=== PATIENT | male | born 1955 | race Caucasian/White ===

== ENCOUNTER 2018-12-29 07:40 | Observation (INO) | payer OTHER ==
[~2018-12-29] VITALS: Ht 165.1 cm; Wt 68.0 kg
[2018-12-29] MEDS ORDERED: NORVASC5 MG PO (07:56)
[2018-12-29] MEDS ORDERED: ASPIR 8181 MG PO (07:56)
[2018-12-29] MEDS ORDERED: CYMBALTA30 MG PO (07:57)
[2018-12-29] MEDS ORDERED: PEPCID AC10 MG PO (07:58)
[2018-12-29] MEDS ORDERED: MELATONIN3 MG PO (07:58)
[2018-12-29] MEDS ORDERED: PROSCAR 5MG TABL5 MG PO (07:58)
[2018-12-29 08:23] LABS: HEMATOCRIT 42.9 % (42.0-52.0); HEMOGLOBIN 14.3 gm/dL (14.0-18.0); MCH 27.9 pg (26.0-34.0); MCHC 33.2 g/dL (28.0-37.0); RBC 5.11 mil/uL (4.50-6.00); RDW 14.4 % (10.5-14.5); WBC 9.2 thou/uL (4.0-11.0)
[2018-12-29 08:31] LABS: CALCIUM 9.7 mg/dL (8.5-10.1); CREATININE 0.8 mg/dL (0.7-1.3); POTASSIUM 3.9 mmol/L (3.5-5.1)
[2018-12-29 08:44] VITALS: BP 113/80
[2018-12-29 09:23] VITALS: BP 113/80
[2018-12-29 16:00] VITALS: BP 186/116; BP 189/119
[2018-12-29 17:00] VITALS: BP 144/93
--- NOTE | 2018-12-29 19:36 | NUR ---
ASSUMED PATIENT CARE FROM IR. STENTS PLACED TODAY. GROIN SITES APPROPRIATE. INCONTINENT OF BOWEL AND BLADDER. URINE BLOOD TINGED. DR. PRASAD NOTIFIED, NO NEW ORDERS GIVEN. MORPHINE GIVEN FOR PAIN. BEDREST UNTIL 1999. PROGRESSING TOWARDS GOALS. OBS PATIENT. WILL MOST LIKELY DC BACK TO [facility] IN [place] TOMORROW.
[2018-12-29 19:40] VITALS: BP 157/90
[2018-12-30 04:23] VITALS: BP 148/83
--- NOTE | 2018-12-30 05:23 | NUR ---
AT 2100 ASSESSMENT PT STATED HE WAS IN PAIN. PT STATES HIS PAIN IS CHRONIC, GAVE 2MG MORPHINE AND 650 ACETA. AFTER 1999 AND TIME ENDED FOR BEING SUPINE PT WANTED TO BE MOVED TO THE CHAIR, IT WAS WHERE HE STATED UNTIL 2400. POC BEING FOLLOWED WITH ONE TIME IVF. CATH SITES CDI, AND NO BRUIE IS HEARD. HOURLY ROUNDING. PT IS ABLE TO EXPRESS HIS NEEDS AND IS ABLE TO USE THE CALL LIGHT.
[2018-12-30 06:23] LABS: HEMOGLOBIN 12.8 gm/dL (14.0-18.0); MCH 27.6 pg (26.0-34.0); MCHC 32.7 g/dL (28.0-37.0); MCV 84.4 fL (80.0-100.0); RBC 4.63 mil/uL (4.50-6.00); RDW 14.6 % (10.5-14.5); WBC 10.8 thou/uL (4.0-11.0)
[2018-12-30 06:30] LABS: CALCIUM 9.2 mg/dL (8.5-10.1); CREATININE 0.7 mg/dL (0.7-1.3); POTASSIUM 3.5 mmol/L (3.5-5.1)
[2018-12-30 08:03] VITALS: BP 115/85
--- NOTE | 2018-12-30 12:40 | NUR ---
PATIENT FROM [facility] AND IS READY FOR DISCHARGE BACK TO [facility]. PATIENT IS IN OBSERVATION STATUS, DISCHARGE ORDERS NOT NEEDED. CLINICAL INFORMATION FAXED TO [facility] [employer] [facility]. PATIENT HAS HIS OWN WHEELCHAIR WITH HIM, [facility] TO TRANSPORT PATIENT, [phone] HOURS. UNIT RN NOTIFIED AND CONTACT NUMBER FOR REPORT PROVIDED.
--- NOTE | 2018-12-30 14:04 | NUR ---
INITIAL ASSESSMENT/DISCHARGE NOTE: SW reviewed chart and spoke with nursing. Pt was admitted as observation following IR procedure. Pt is medically stable for discharge back to [place] today. corporate meeting planner coordinated. No additional SW needs identified at this time, but is available to assist should needs arise.
== END 2018-12-30 13:21 ==
LOC: SPEC 07:40 → 3W 16:03
PROVIDERS: ADMIT Nuclear Medicine Nuclear Cardiology
DX: I73.9 Peripheral vascular disease, unspecified (principal); I70.201 Unspecified atherosclerosis of native arteries of extremities, right leg; I25.10 Atherosclerotic heart disease of native coronary artery without angina pectoris; I12.9 Hypertensive chronic kidney disease with stage 1 through stage 4 chronic kidney disease, or unspecified chronic kidney disease; E11.22 Type 2 diabetes mellitus with diabetic chronic kidney disease; N18.9 Chronic kidney disease, unspecified; E78.5 Hyperlipidemia, unspecified; F32.9 Major depressive disorder, single episode, unspecified; N40.0 Benign prostatic hyperplasia without lower urinary tract symptoms; E11.622 Type 2 diabetes mellitus with other skin ulcer; L97.929 Non-pressure chronic ulcer of unspecified part of left lower leg with unspecified severity; Z87.891 Personal history of nicotine dependence; Z86.73 Personal history of transient ischemic attack (TIA), and cerebral infarction without residual deficits; Z79.82 Long term (current) use of aspirin; Z79.899 Other long term (current) drug therapy
CPT/HCPCS: 10779

== ENCOUNTER → 2019-05-04 | Outpatient (CLI) | payer OTHER ==
[~2019-05-04] MED LIST: ASPIR 8181 MG PO; CYMBALTA30 MG PO; MELATONIN3 MG PO; NORVASC5 MG PO; PEPCID AC10 MG PO; PROSCAR 5MG TABL5 MG PO
== END ==
LOC: ULTRA 09:31
DX: I65.23 Occlusion and stenosis of bilateral carotid arteries (principal); I70.202 Unspecified atherosclerosis of native arteries of extremities, left leg; I77.1 Stricture of artery